=== PATIENT | male | born 1960 | race Caucasian/White ===

== ENCOUNTER 2023-03-05 09:52 | Day surgery (SDC) | payer OTHER ==
[~2023-03-05] VITALS: Ht 167.6 cm; Wt 68.0 kg
[2023-03-05] MEDS ORDERED: fentaNYL citrate 0.05 MG/ML VIAL ONE (11:49)
[2023-03-05] MEDS ORDERED: diphenhydrAMINE 50 MG/ML VIAL ONE (11:49)
[2023-03-05] MEDS ORDERED: MIDAZOLAM 2 MG/2 ML VIAL ONE (11:50)
[2023-03-05] MEDS ORDERED: MIDAZOLAM 2 MG/2 ML VIAL IVP ONE (14:00)
[2023-03-05] MEDS ORDERED: fentaNYL citrate 0.05 MG/ML VIAL IVP ONE (14:00)
== END 2023-03-05 13:07 | disposition home or self-care (01) ==
LOC: MDS 09:52 → MMU 10:15 → MDS 13:07
PROVIDERS: ATTEND Internal Medicine Gastroenterology
DX: Z12.11 Encounter for screening for malignant neoplasm of colon (principal); K21.9 Gastro-esophageal reflux disease without esophagitis; K44.9 Diaphragmatic hernia without obstruction or gangrene; I10 Essential (primary) hypertension; E11.9 Type 2 diabetes mellitus without complications; E78.00 Pure hypercholesterolemia, unspecified; Z79.84 Long term (current) use of oral hypoglycemic drugs; Z79.899 Other long term (current) drug therapy
CPT/HCPCS: 43239; 45378; J2250; J3010; J1200